=== PATIENT | female | born 1975 | race Caucasian/White ===

== ENCOUNTER 2017-03-09 12:06 | Emergency (ER) | payer OTHER ==
[~2017-03-09] VITALS: Ht 170.2 cm; Wt 90.7 kg
[~2017-03-09 12:06] MED LIST: ALBUPOW26; AZMACORT; DIVA125T12; LEVE100S4; MEMA5TAB2; PAXIL; [UNRECOGNIZED DRUG - OTHER]; [UNRECOGNIZED DRUG - OTHER]
[2017-03-09 13:50] LABS: Basophils # (auto) 0 uL; Basophils % (auto) 1.2 % (0.0-2.0); Eosinophils # (auto) 0 uL; Eosinophils % (auto) 1.2 % (0.0-7.0); Hematocrit 43.3 % (36.0-46.0); Lymphocytes # (auto) 1.7 uL; Lymphocytes % (auto) 46.7 % (10.0-50.0); Mean Corpuscular Hemoglobin 33.5 pg (28.0-32.0); Mean Corpuscular Hgb Conc. 34.8 g/dL (32.0-36.0); Mean Corpuscular Volume 96.3 fL (80.0-100.0); Mean Platelet Volume 7.4 fL (6.9-10.8); Monocytes # (auto) 0.3 uL; Monocytes % (auto) 7.8 % (0.0-12.0); Neutrophils # (auto) 1.6 uL; Neutrophils % (auto) 43.1 % (37.0-80.0); Nucleated Red Blood Cells % 0.3 %; Platelet Count (auto) 135 10^3/uL (140-450); Red Cell Distribution Width 14.5 % (11.8-14.3); White Blood Cell 3.6 10^3/uL (4.4-10.8)
[2017-03-09 14:11] LABS: Anion Gap 8 (5-15); Aspartate Aminotransferase 6 U/L (15-37); Blood Urea Nitrogen 6 mg/dL (7-18); Calcium 8.3 mg/dL (8.5-10.1); Carbon Dioxide 25 mmol/L (21-32); Chloride 105 mmol/L (98-107); GFR African American 109 mL/min; GFR Non-African American 90 mL/min; Glucose 97 mg/dL (74-106); Magnesium 2.4 mg/dL (1.6-2.6); Potassium 3.6 mmol/L (3.5-5.1); Sodium 138 mmol/L (136-145)
[2017-03-09 14:18] LABS: Alkaline Phosphatase 44 U/L (45-117); Bilirubin, Total 0.3 mg/dL (0.2-1.0); Total Protein 6.6 g/dL (6.4-8.2)
[2017-03-09 17:51] VITALS: BP 108/68
== END 2017-03-09 16:30 | disposition home or self-care (01) ==
LOC: EDBD 12:06 → ER 12:06
DX: R56.9 Unspecified convulsions (principal); J45.909 Unspecified asthma, uncomplicated
CPT/HCPCS: 36415; 70450; 71010; 80053; 80164; 83735; 84484; 85025; 93005; 94761

== ENCOUNTER 2017-04-06 09:39 | Emergency (ER) | payer OTHER ==
[~2017-04-06] VITALS: Ht 172.7 cm; Wt 72.6 kg
[2017-04-06] MEDS ORDERED: MIDAZOLAM HCL 1MG/1ML-2 ML VIAL ONE (10:15)
[2017-04-06] MEDS ORDERED: MIDAZOLAM HCL 1MG/1ML-2 ML VIAL IV ONE (10:30)
[2017-04-06 10:45] LABS: Basophils # (auto) 0.1 uL; Basophils % (auto) 1.1 % (0.0-2.0); Eosinophils # (auto) 0.1 uL; Eosinophils % (auto) 1.2 % (0.0-7.0); Hematocrit 44.2 % (36.0-46.0); Hemoglobin 15.2 g/dL (12.2-16.2); Lymphocytes # (auto) 2.1 uL; Lymphocytes % (auto) 25.6 % (10.0-50.0); Mean Corpuscular Hemoglobin 33.3 pg (28.0-32.0); Mean Corpuscular Hgb Conc. 34.4 g/dL (32.0-36.0); Mean Corpuscular Volume 96.7 fL (80.0-100.0); Monocytes # (auto) 0.9 uL; Neutrophils # (auto) 5.1 uL; Neutrophils % (auto) 61.1 % (37.0-80.0); Nucleated Red Blood Cells % 0.1 %; Platelet Count (auto) 160 10^3/uL (140-450); Red Blood Cells 4.57 10^6/uL (4.0-5.20); Red Cell Distribution Width 13.9 % (11.8-14.3); White Blood Cell 8.3 10^3/uL (4.4-10.8)
[2017-04-06] MEDS ORDERED: LORazepam 2MG/ML-1ML VIAL ONE (11:13)
[2017-04-06 11:26] LABS: Albumin 3.7 g/dL (3.4-5.0); BUN/Creatinine Ratio 10.6; Bilirubin, Total 0.3 mg/dL (0.2-1.0); Calcium 8.9 mg/dL (8.5-10.1); Potassium 3.9 mmol/L (3.5-5.1); Total Protein 7.3 g/dL (6.4-8.2)
[2017-04-06] MEDS ORDERED: SODIUM CHLORIDE 0.9% 1,000 ML IV ONE ×2 (11:35)
[2017-04-06] MEDS ORDERED: LEVETIRACETAM INJ 1,000 MG in D5W 5% 100 ML IV ONE (11:45)
[2017-04-06] MEDS ORDERED: LORazepam 2MG/ML-1ML VIAL IV ONE (11:45)
[2017-04-06] MEDS ORDERED: VALPROATE INJ 250 MG in SODIUM CHL 0.9% 50 ML IV ONE (12:30)
[2017-04-06] MEDS ORDERED: VALPROATE IV ONE (12:45)
[2017-04-06] MEDS ORDERED: D5W 5% IV ONE (12:45)
[2017-04-06 13:02] LABS: Urine WBC None Seen /hpf (0 - 5)
[2017-04-06 13:19] LABS: Urine Bacteria NONE SEEN /hpf (None Seen); Urine Blood Negative /uL (Negative); Urine Specific Gravity 1.009 (1.001-1.035)
[2017-04-06 16:02] VITALS: BP 121/82
== END 2017-04-06 17:10 | disposition home or self-care (01) ==
LOC: ER 09:39 → EDBD 09:39 → ER 17:10
DX: R53.1 Weakness (principal); J45.909 Unspecified asthma, uncomplicated
CPT/HCPCS: 36415; 70450; 80053; 80164; 81001; 82542; 85025; 96361; 96365; 96367; 96375; 99285; J1953; J2060; J2250; J7030; J7060

== ENCOUNTER 2017-10-12 11:13 | Emergency (ER) | payer OTHER ==
[~2017-10-12] VITALS: Ht 165.1 cm; Wt 90.7 kg
[2017-10-12] MEDS ORDERED: SODIUM CHLORIDE 0.9% 1,000 ML IV ONE ×2 (11:24)
[2017-10-12] MEDS ORDERED: LORazepam 2MG/ML-1ML VIAL IV ONE (11:30)
[2017-10-12 12:18] LABS: Basophils # (auto) 0.1 uL; Eosinophils # (auto) 0.3 uL; Eosinophils % (auto) 3.7 % (0.0-7.0); Hematocrit 41.5 % (36.0-46.0); Hemoglobin 14.2 g/dL (12.2-16.2); Lymphocytes # (auto) 3.1 uL; Mean Corpuscular Hemoglobin 32.8 pg (28.0-32.0); Mean Corpuscular Hgb Conc. 34.1 g/dL (32.0-36.0); Mean Corpuscular Volume 96.3 fL (80.0-100.0); Monocytes # (auto) 0.4 uL; Monocytes % (auto) 5.1 % (0.0-12.0); Neutrophils # (auto) 3.2 uL; Neutrophils % (auto) 46.2 % (37.0-80.0); Nucleated Red Blood Cells % 0.1 %; Platelet Count (auto) 202 10^3/uL (140-450); Red Blood Cells 4.32 10^6/uL (4.0-5.20); Red Cell Distribution Width 13.4 % (11.8-14.3); White Blood Cell 6.9 10^3/uL (4.4-10.8)
[2017-10-12 12:40] LABS: INR 0.97 (0.9-1.15); Partial Thromboplastin Time 29.4 sec (23.78-33.04); Prothrombin Time 10.4 sec (9.27-12.13)
[2017-10-12 12:43] LABS: Alanine Aminotransferase 18 U/L (13-56); Albumin 3.4 g/dL (3.4-5.0); Alkaline Phosphatase 51 U/L (45-117); Anion Gap 10 (5-15); Aspartate Aminotransferase 9 U/L (15-37); BUN/Creatinine Ratio 13.9; Bilirubin, Total 0.3 mg/dL (0.2-1.0); Blood Alcohol < 3.0 mg/dL (0-5); Blood Urea Nitrogen 10 mg/dL (7-18); Calcium 9.3 mg/dL (8.5-10.1); Carbon Dioxide 26 mmol/L (21-32); Chloride 105 mmol/L (98-107); GFR African American 114 mL/min; GFR Non-African American 94 mL/min; Glucose 89 mg/dL (74-106); Potassium 4.3 mmol/L (3.5-5.1); Sodium 141 mmol/L (136-145); Total Protein 6.9 g/dL (6.4-8.2)
[2017-10-12 16:36] VITALS: BP 116/63
== END 2017-10-12 16:49 | disposition short-term general hospital (02) ==
LOC: ER 11:13 → EDBD 11:13 → ER 16:49
DX: G93.41 Metabolic encephalopathy (principal); R56.9 Unspecified convulsions; J45.909 Unspecified asthma, uncomplicated; Z88.1 Allergy status to other antibiotic agents
CPT/HCPCS: 36415; 70450; 71045; 80053; 80320; 83605; 84484; 85025; 85610; 85730; 87040; 96374; 99285; J2060; 93005

== ENCOUNTER 2018-03-02 11:58 | Emergency (ER) | payer OTHER ==
[~2018-03-02] VITALS: Ht 167.6 cm; Wt 83.9 kg
[2018-03-02] MEDS ORDERED: SODIUM CHLORIDE 0.9% 1,000 ML IVB ONE (12:27)
[2018-03-02] MEDS ORDERED: LORazepam 2MG/ML-1ML VIAL IV ONE (12:30)
[2018-03-02 13:46] LABS: Basophils # (auto) 0.1 uL; Eosinophils # (auto) 0.1 uL; Eosinophils % (auto) 0.8 % (0.0-7.0); Hematocrit 40.9 % (36.0-46.0); Hemoglobin 14.1 g/dL (12.2-16.2); Lymphocytes # (auto) 1.7 uL; Lymphocytes % (auto) 25.5 % (10.0-50.0); Mean Corpuscular Hemoglobin 33.6 pg (28.0-32.0); Mean Corpuscular Hgb Conc. 34.4 g/dL (32.0-36.0); Mean Corpuscular Volume 97.6 fL (80.0-100.0); Monocytes # (auto) 0.4 uL; Monocytes % (auto) 6.1 % (0.0-12.0); Neutrophils # (auto) 4.6 uL; Neutrophils % (auto) 66.6 % (37.0-80.0); Platelet Count (auto) 201 10^3/uL (140-450); Red Blood Cells 4.19 10^6/uL (4.0-5.20); Red Cell Distribution Width 13.8 % (11.8-14.3); White Blood Cell 6.8 10^3/uL (4.4-10.8)
[2018-03-02 13:58] LABS: Partial Thromboplastin Time 30.1 sec (23.78-33.04); Prothrombin Time 10.7 sec (9.27-12.13)
[2018-03-02 14:02] LABS: Albumin 3.1 g/dL (3.4-5.0); BUN/Creatinine Ratio 13.9; Potassium 4.5 mmol/L (3.5-5.1)
[2018-03-02 14:04] LABS: Bilirubin, Total 0.3 mg/dL (0.2-1.0); Total Protein 6.4 g/dL (6.4-8.2)
[2018-03-02 15:35] VITALS: BP 103/68
== END 2018-03-02 16:07 | disposition home or self-care (01) ==
LOC: EDBD 11:58 → ER 12:02
DX: R56.9 Unspecified convulsions (principal); J45.909 Unspecified asthma, uncomplicated
CPT/HCPCS: 36415; 80053; 80164; 83735; 85025; 85610; 85730; 94761; 96374; 99284; J2060; J7030